=== PATIENT | male | born 1985 | race African-American/Black ===

== ENCOUNTER 2019-03-28 15:54 | Emergency (ER) | payer OTHER ==
[~2019-03-28] VITALS: Ht 182.9 cm; Wt 81.6 kg
[2019-03-28 16:14] VITALS: BP 130/86
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
[2019-03-28] MEDS ORDERED: ROBAXIN-750750 MG PO (16:29)
[2019-03-28] MEDS ORDERED: IBU800 MG PO (16:29)
[2019-03-28] MEDS ORDERED: Ketorolac 60mg Inj IM ONE (16:30)
--- NOTE | 2019-03-28 16:38 | NUR ---
ED Nurse Note: pt requested "I need strong pain meds. ibuprofen does not work for me. I need some kind of vicodin." RN explained toradol shot will work and will talk to PA if it is not working. pt understand it.
[2019-03-28 16:57] VITALS: BP 127/71
--- NOTE | 2019-03-28 16:58 | NUR ---
ER DISCHARGE NOTE: Patient is cleared to be discharged per ERMD, pt is aox4, on room air, with stable vital signs. pt was given dc and prescription instructions, pt was able to verbalize understanding, pt id band removed without complications. pt is able to ambulate with steady gait. pt took all belongings.
--- NOTE | 2019-03-29 10:51 | Diagnostic Imaging Report ---
Indication: Chest pain Technique: XRAY Chest 1v Comparison: None Findings: Heart size and mediastinal contours are within normal limits for AP technique. There is no focal airspace consolidation, pneumothorax or pleural effusion. Osseous structures demonstrate no acute abnormality. Impression: No radiographic evidence of acute cardiopulmonary disease.
== END 2019-03-28 16:58 | disposition home or self-care (01) ==
LOC: EMR 16:40
DX: S29.012A Strain of muscle and tendon of back wall of thorax, initial encounter (principal); X58.XXXA Exposure to other specified factors, initial encounter; Y92.9 Unspecified place or not applicable; G89.29 Other chronic pain
CPT/HCPCS: 71045; 96372; 99283